=== PATIENT | female | born 1975 | race Caucasian/White ===

== ENCOUNTER 2018-05-20 14:29 | Emergency (ER) | payer MEDICAID ==
--- NOTE | 2018-05-20 15:37 | EDPHY ---
H & P Stated Complaint: Abd Pain and vaginal bleeding x 1 month, cramps "everywhere" Time Seen by Provider: 05/20/18 15:37 HPI/ROS: HPI: This is a 43-year-old female who presents with Chief Complaint: Abd Pain and vaginal bleeding x 1 month, cramps "everywhere" Location: Lower abdomen Quality: Pain Duration: 1 month Signs and Symptoms: no fever, no nausea, no vomiting, no hematemesis, no blood in stool, no abdominal bloating, no diarrhea, + back pain, + urinary symptoms, + vaginal bleeding, + vaginal discharge, no indigestion, no chest pain, no shortness of breath Timing: Daily, constant, worsening Severity: Moderate to severe Context: Patient is homeless, does not have a primary care provider, presents accompanied by her significant other with complaints lower abdominal pain and vaginal bleeding x1 month. She reports that she has cramping in the lower abdomen accompanied by low back pain and vaginal discharge. Her last pelvic exam was 2 years ago. Eating and drinking without difficulty. LMP 1-2 weeks ago. Modifying Factors: None Comment: ROS: A comprehensive 10 system review of systems is otherwise negative aside from elements mentioned in the history of present illness. MEDICAL/SURGICAL/SOCIAL HISTORY: Medical history: Generally healthy. Does not take any regular medications. Surgical history: Tubal ligation Social history: Homeless. Smoker. Family history noncontributory. CONSTITUTIONAL: Nontoxic-appearing, adult white female, untidy, awake and alert , no obvious distress HEENT: Atraumatic and normocephalic, PERRL, EOMI. Nares patent; no rhinorrhea; no nasal mucosal edema. Tympanic membranes clear. Oropharynx clear, no exudate and moist pink mucosa. Airway patent. No lymphadenopathy. No meningismus. Cardiovascular: Normal S1/S2, regular rate, regular rhythm, without murmur rub or gallop. PULMONARY/CHEST: Symmetrical and nontender. Clear to auscultation bilaterally. Good air movement. No accessory muscle usage. ABDOMEN: Soft, nondistended, nontender, no rebound, no guarding, no peritoneal signs, no masses or organomegaly. No CVAT. PELVIC: normal external genitalia, normal cervix, cervical os was closed, mild cervical motion tenderness, no adnexal mass, thick yellowish malodorous discharge, no bleeding. The exam was performed with a kelp cutter. EXTREMITIES: 2/2 pulses, strength 5/5, no deformities, no clubbing, no cyanosis or edema. NEUROLOGICAL: no focal neuro deficits. GCS 15. SKIN: Warm and dry, no erythema. no rash. Good capillary refill. Source: Patient Exam Limitations: No limitations - Personal History LMP (Females 10-55): 8-14 Days Ago Current Tetanus/Diphtheria Vaccine: Unsure Current Tetanus Diphtheria and Acellular Pertussis (TDAP): Unsure - Medical/Surgical History Hx Asthma: No Hx Chronic Respiratory Disease: No Hx Diabetes: No Hx Cardiac Disease: No Hx Renal Disease: No Hx Cirrhosis: No Hx Alcoholism: Yes Hx HIV/AIDS: No Hx Splenectomy or Spleen Trauma: No Other PMH: Surgery: Tubal Ligation. Medical: None - Social History Smoking Status: Current every day smoker Constitutional: Initial Vital Signs Temperature (C) 36.5 C 05/20/18 14:35 Heart Rate 88 05/20/18 14:35 Respiratory Rate 16 05/20/18 14:35 Blood Pressure 125/85 H 05/20/18 14:35 O2 Sat (%) 99 05/20/18 14:35 O2 Delivery Mode Room Air Allergies/Adverse Reactions: No Known Allergies Allergy (Unverified 05/20/18 14:35) Home Medications: Medication Instructions Recorded Doxycycline Hyclate 100 mg PO BID 14 Days tab 05/20/18 Metronidazole 500 mg PO BID 14 Days tablet 05/21/18 Medical Decision Making ED Course/Re-evaluation: Vital signs reviewed and stable upon arrival. IV access and laboratory studies ordered. Urinalysis and pelvic ultrasound also ordered. Pelvic swabs for GC, bacterial vaginosis, Trichomonas, wet mount 1555: Urinalysis shows WBC, epithelial cells; RBCs and 1+ bacteria; sent for urine culture 1630: Called by Dr. Vasquez. Pelvic ultrasound shows no free fluid, right ovary complex cyst measuring 1.5 x 1.4 x 1.1 cm. No ovarian torsion. No ectopic . Good blood flow to both ovaries. 1655: Labs reviewed. Mild leukocytosis. No signs of leukocytosis/anemia/ platelet dysfunction/AISHA/electrolyte imbalance. Patient has positive cervical motion tenderness, no adnexal tenderness; concerning for mild PID. Given IM ceftriaxone 250 mg and doxycycline p.o. 100 mg with a 14 day course. Patient has no systemic signs to indicate need for inpatient admission and IV antibiotics. Advised pelvic rest, treat all sexual partners, follow-up [facility] This patient was seen under the supervision of my secondary supervising physician. I evaluated care for this patient independently. Discussed this patient with Dr. Almonte. Addendum: Pelvic swab results are positive for Trichomonas, bacterial vaginosis no cysts and chlamydia. Charge nurse called patient and prescription for metronidazole 500 mg twice a day times 14 days called into pharmacy of choice. Differential Diagnosis: Abdominal pain in a female including but not limited to ovarian cyst, pelvic inflammatory disease, ovarian torsion, urinary tract infection, and appendicitis. - Data Points Laboratory Results: Laboratory Results 05/20/18 15:53 05/20/18 15:53 05/20/18 16:40 C.trachomatis RNA (TMA) POSITIVE H (NEGATIVE) N.gonorrhoeae RNA (TMA) NEGATIVE (NEGATIVE) Microbiology Results: MICROBIOLOGY 05/20/18 15:46 Urine,Clean Catch Urine Culture - Preliminary Three [place] Types Medications Given: Discontinued Medications Ceftriaxone Sodium (Rocephin Im Syringe) 250 mg IM EDNOW ONE PRN Reason: Protocol Stop: 05/20/18 16:43 Last Admin: 05/20/18 17:14 Dose: 250 mg Doxycycline Hyclate (Doxycycline Hyclate) 100 mg PO EDNOW ONE PRN Reason: Protocol Stop: 05/20/18 16:44 Last Admin: 05/20/18 17:16 Dose: 100 mg Departure - Departure Disposition: Home, Routine, Self-Care Clinical Impression: Pelvic inflammatory disease, female, Trichomonas vaginalis infection, Chlamydia vaginitis/cervicitis, Bacterial vaginitis Condition: Good Instructions: Pelvic Inflammatory Disease (ED), Sexually Transmitted Diseases ( ED), Pelvic Rest (ED) Additional Instructions: Please observe pelvic rest for the next 2 weeks. Take all antibiotics directed. Do not skip a dose. Complete entire 14 day course. Refrain from sexual activity until you have completed all antibiotic therapy, your symptoms have resolved, and sex partners have been evaluated and/or treated for potentially sexually transmitted infections. If your tests come back positive for Trichomonas or bacterial vaginosis; another antibiotic prescription will need to be called into the pharmacy for you. The emergency room will contact you tomorrow with these results. [facility] in the next 1-2 weeks. In the future, please practice safe sex. Referrals: [facility],. [Clinic] - As per Instructions Prescriptions: Doxycycline Hyclate 100 mg PO BID 14 Days tab Metronidazole 500 mg PO BID 14 Days tablet
[2018-05-20 16:01] LABS: PLATELET COUNT 360 10^3/uL (150-400)
[2018-05-20] MEDS ORDERED: DOXYCYCLINE HYCLATE 100 MG CAP/TAB PO ONE (16:43)
[2018-05-20 17:36] VITALS: BP 126/68
[2018-05-21 11:51] LABS: GC AMPLIFICATION GENPROBE NEGATIVE (NEGATIVE)
== END 2018-05-20 17:39 | disposition home or self-care (01) ==
DX: N73.9 Female pelvic inflammatory disease, unspecified (principal); A59.01 Trichomonal vulvovaginitis; A56.02 Chlamydial vulvovaginitis; A56.09 Other chlamydial infection of lower genitourinary tract; N76.0 Acute vaginitis
CPT/HCPCS: J0696